=== PATIENT | female | born 1940 | race Caucasian/White ===

== ENCOUNTER → 2016-05-28 | Outpatient (CLI) | payer MEDICARE, OTHER | LOC: RAD 16:00 | PROVIDERS: ATTEND Internal Medicine | DX: M54.14 Radiculopathy, thoracic region (principal); M54.5 Low back pain; S22.000A Wedge compression fracture of unspecified thoracic vertebra, initial encounter for closed fracture; X58.XXXA Exposure to other specified factors, initial encounter; M48.06 Spinal stenosis, lumbar region | CPT/HCPCS: 72146; 72148 ==

== ENCOUNTER → 2016-09-22 | Outpatient (CLI) | payer MEDICARE, OTHER ==
--- NOTE | 2016-09-22 15:51 | RADIOLOGY REPORT (SQ) ---
EXAM DESCRIPTION: VENOUS UNILATERAL LOWER COMPLETED DATE/TIME: 09/22/2016 3:38 pm REASON FOR STUDY: RLE M79.604 M79.604 PAIN IN RIGHT LEG COMPARISON: None. TECHNIQUE: Dynamic and static العر[place] scale and color images acquired of the right leg venous system. S elected spectral images acquired with additional compression and augmentation maneuvers. The contrala teral common femoral vein and saphenofemoral junction were also imaged. Images stored on PACS. LIMITATIONS: None. FINDINGS: RIGHT COMMON FEMORAL: Echogenic nonocclusive clot is seen in the right common femoral vein. FEMORAL: Mixed echogenicity occlusive clot is seen in the femoral vein POPLITEAL: Nearly occlusive mixed echogenicity clot is seen in the right popliteal vein. CALF VESSELS: 1 of the paired posterior tibial veins is completely thrombosed, the other is patent. Peroneal veins unremarkable. GSV and SSV: Normal compression, augmentation. No visualized echogenic material on العر[place] scale. No def ects on color images. ANY DEEP VENOUS INSUFFICIENCY: Not evaluated. ANY EVIDENCE OF POPLITEAL CYST: No. OTHER: No other significant finding. LEFT COMMON FEMORAL VEIN AND SAPHENOFEMORAL JUNCTION: Normal phasicity, compression and augmentation. No visualized echogenic material on العراق[place] scale. No de fects on color images. IMPRESSION: DEEP VENOUS THROMBOSIS RIGHT LEG FROM THE POSTERIOR TIBIAL VEINS THROUGH THE POPLITEAL, FEMORAL, AND COMMON FEMORAL VEINS. TECHNICAL DOCUMENTATION: JOB ID: [id number] [employer]- All Rights Reserved
== END ==
LOC: SP 14:05
PROVIDERS: ATTEND Internal Medicine Medical Oncology
DX: M79.604 Pain in right leg (principal); I82.441 Acute embolism and thrombosis of right tibial vein; C90.01 Multiple myeloma in remission
CPT/HCPCS: 93971

== ENCOUNTER → 2017-02-16 | Outpatient (CLI) | payer MEDICARE, OTHER ==
--- NOTE | 2017-02-16 15:23 | XCELERA REPORT ---
[address] [address] Lower Extremity Venous Evaluation Name: MARIELA SINHA Age: 76 yrs Gender: Female : 1940 Patient Status: Outpatient Patient Location: Study Date: 02/16/2017 10:46 AM Procedure: Color flow and duplex imaging of the veins of the right lower extremity as well as the left Common Femoral vein. Reason For Study: HX DVT RLE Ordering Physician: BECK PEREZ Performed By: Ana Lilia Jones Right Sided Venous Evaluation Normal vessel filling wall to wall, compression and augmentation as well as Colour flow down to the infrageniculate veins. Left Sided Venous Evaluation The left common femoral vein is fully compressible. Spontaneous and phasic flow is present in the left common femoral vein. Interpretation Summary No duplex evidence of DVT or obstruction in the right lower extremity nor in the left Common Femoral vein. : BECK PEREZ [place]
== END ==
LOC: SP 10:43
PROVIDERS: ATTEND Internal Medicine
DX: I82.411 Acute embolism and thrombosis of right femoral vein (principal)
CPT/HCPCS: 93971

== ENCOUNTER 2017-03-22 15:23 | Inpatient (IN) | payer MEDICARE, OTHER ==
[2017-03-22] MEDS ORDERED: ALBUTEROL SULFATE 0.083% NEB 2.5 MG/3 ML AMPUL NEB PRN (17:50)
[2017-03-22] MEDS ORDERED: ACETAMINOPHEN 325 MG TABLET PO PRN (17:50)
[2017-03-22 17:58] LABS: ALANINE AMINOTRANSFERASE 35 U/L (9-52); ALBUMIN 3.4 g/dL (3.5-5.0); ALKALINE PHOSPHATASE 57 U/L (38-126); ANION GAP 9 (5-19); ASPARTATE AMINO TRANSFERASE 41 U/L (14-36); BILIRUBIN,DIRECT 0.1 mg/dL (0.0-0.4); BILIRUBIN,TOTAL 0.5 mg/dL (0.2-1.3); BLOOD UREA NITROGEN 16 mg/dL (7-20); CARBON DIOXIDE 29 mmol/L (22-30); CHLORIDE 98 mmol/L (98-107); GLUCOSE 83 mg/dL (75-110); SODIUM 135.6 mmol/L (137-145); TOTAL PROTEIN 5.5 g/dL (6.3-8.2)
[2017-03-22] MEDS ORDERED: GENTAMICIN SULFATE 0 MG in DEXTROSE 5%-WATER 100 ML IV NR (18:00)
[2017-03-22] MEDS ORDERED: PREDNISOLONE ACETATE 1% OPH SUSP 5 ML OP PRN (18:01)
[2017-03-22] MEDS ORDERED: OXYCODONE-ACETAMINOPHEN 5-325 MG TABLET PO PRN ×2 (18:01→20:33)
[2017-03-22 18:03] LABS: POTASSIUM 2.9 mmol/L (3.6-5.0)
--- NOTE | 2017-03-22 18:12 | RADIOLOGY REPORT (SQ) ---
EXAM DESCRIPTION: CHEST PA/LAT COMPLETED DATE/TIME: 03/22/2017 5:58 pm REASON FOR STUDY: HX MULTIPLE MYELOMA COMPARISON: May 2016 MRI EXAM PARAMETERS: NUMBER OF VIEWS: two views TECHNIQUE: Digital Frontal and Lateral radiographic views of the chest acquired. RADIATION DOSE: NA LIMITATIONS: none FINDINGS: LUNGS AND PLEURA: No acute opacities, masses or pneumothorax. Mild chronic interstitial c hanges. No pleural effusion. MEDIASTINUM AND HILAR STRUCTURES: Age-appropriate contour. HEART AND VASCULAR STRUCTURES: Normal size. BONES: No acute findings. Compression deformities similar to May 2016. HARDWARE: None in the chest. OTHER: No other significant finding. IMPRESSION: No acute findings. TECHNICAL DOCUMENTATION: JOB ID: [id number] [place]-72 [id number] [employer]- All Rights Reserved
--- NOTE | 2017-03-22 18:17 | PDOC H&P ---
History of Present Illness Admission Date/PCP: 03/22/17 15:23 BECK PEREZ, Patient complains of: cough. uri. diarrhea. dry mouth. low bp History of Present Illness: MARIELA SINHA is a 76 year old female Past Medical History Cardiac Medical History: Reports: DVT, Hyperlipidema, Hypertension Malignancy Medical History: Reports: Other Malignancy History Note: multiple myloma Musculoskeltal Medical History: Reports: Arthritis Psychiatric Medical History: Reports: Depression, General Anxiety Disorder Hematology: Reports: Anemia Social History Information Source: Patient Lives with: Family, Spouse/Significant other Smoking Status: Never Smoker Frequency of Alcohol Use: Rare Hx Recreational Drug Use: No Drugs: None Hx Prescription Drug Abuse: No Family History Family History: Reviewed & Not Pertinent Parental Family History Reviewed: Yes Children Family History Reviewed: Yes Sibling(s) Family History Reviewed.: Yes Medication/Allergy Home Medications: Allopurinol [Zyloprim 100 mg Tablet] 100 mg PO DAILY 07/02/15 Ascorbic Acid [Acerola C] 500 mg PO DAILY 07/02/15 Atorvastatin Calcium [Lipitor 10 mg Tablet] 10 mg PO QHS 07/02/15 Calcium/Magnesium/Vit D3 [Calcium 500 mg Tablet] 3 tab PO DAILY 07/02/15 Citalopram Hydrobromide [Celexa 20 mg Tablet] 20 mg PO DAILY 07/02/15 Cyanocobalamin (Vitamin B-12) [B-12] 1,000 mcg PO DAILY 07/02/15 Dexamethasone [Decadron 4 Mg Tablet] 40 mg PO PRN PRN 07/02/15 Hydrochlorothiazide 25 mg PO DAILY 07/02/15 Omeprazole [Prilosec] 40 mg PO PRN PRN 07/02/15 Oxycodone HCl/Acetaminophen [Percocet 5-325 mg Tablet] 1 - 2 tab PO Q4H PRN #15 tablet 07/02/15 Oxycodone HCl/Acetaminophen [Percocet 5-325 mg Tablet] 1 - 2 tab PO Q4H PRN #25 tablet 07/02/15 Prednisolone Acetate [Pred Forte] 1 ml OP PRN PRN 07/02/15 Tramadol HCl [Ultram 50 mg Tablet] 50 mg PO Q6HP PRN 07/02/15 Valacyclovir HCl [Valtrex] 1,000 mg PO DAILY 07/02/15 Allergies/Adverse Reactions: Penicillins Allergy (Verified 07/02/15 12:52) Sulfa (Sulfonamide Antibiotics) Allergy (Verified 07/02/15 12:52) Review of Systems All systems: as per [facility] Physical Exam Vital Signs: Temp Pulse Resp BP Pulse Ox 99.5 F 86 16 136/75 H 96 03/22/17 16:39 03/22/17 16:39 03/22/17 16:39 03/22/17 16:39 03/22/17 16:39 Intake & Output 03/21/17 03/22/17 03/23/17 06:59 06:59 06:59 Weight 41.9 kg General appearance: PRESENT: severe distress Eye exam: PRESENT: conjunctiva pale Mouth exam: PRESENT: dry mucosa Neck exam: ABSENT: JVD Respiratory exam: PRESENT: accessory muscle use, rhonchi, tachypnea Cardiovascular exam: PRESENT: +S1, +S2, tachycardia GI/Abdominal exam: PRESENT: soft, tenderness Extremities exam: PRESENT: full ROM Musculoskeletal exam: PRESENT: ambulatory Neurological exam: PRESENT: alert, awake Results Laboratory Results: 03/22/17 17:26 03/22/17 03/22/17 17:26 17:26 Seg Neutrophils % Not Reportable Lymphocytes % Not Reportable Monocytes % Not Reportable Eosinophils % Not Reportable Basophils % Not Reportable Absolute Neutrophils Not Reportable Absolute Lymphocytes Not Reportable Absolute Monocytes Not Reportable Absolute Eosinophils Not Reportable Absolute Basophils Not Reportable Sodium 135.6 L Potassium 2.9 L* Chloride 98 Carbon Dioxide 29 Anion Gap 9 BUN 16 Creatinine 0.72 Est GFR ( Amer) > 60 Est GFR (Non-Af Amer) > 60 Glucose 83 Calcium 8.0 L Total Bilirubin 0.5 AST 41 H ALT 35 Alkaline Phosphatase 57 Total Protein 5.5 L Albumin 3.4 L Assessment & Plan - Diagnosis (1) Pneumonia Qualifiers: Pneumonia type: due to unspecified organism Is this a current diagnosis for this admission?: Yes Plan: antibiotics (2) Hypokalemia Is this a current diagnosis for this admission?: Yes Plan: kcl (3) Dehydration Is this a current diagnosis for this admission?: Yes Plan: ivf (4) Gastroenteritis Is this a current diagnosis for this admission?: Yes Plan: antibiotics clear liquids (5) Multiple myeloma Is this a current diagnosis for this admission?: Yes Plan: hem/onc consult (6) DVT (deep venous thrombosis) Is this a current diagnosis for this admission?: Yes Plan: elder
[2017-03-22 19:10] LABS: HEMATOCRIT 31.4 % (36.0-47.0); HEMOGLOBIN 10.8 g/dL (12.0-15.5); MEAN CORPUSCULAR HEMOGLOBIN 36.5 pg (27.0-33.4); MEAN CORPUSCULAR HGB CONC 34.3 g/dL (32.0-36.0); MEAN CORPUSCULAR VOLUME 106 fl (80-97); RED BLOOD COUNT 2.95 10^6/uL (3.72-5.28); RED CELL DISTRIBUTION WIDTH 14.6 % (11.5-14.0)
[2017-03-22 19:29] LABS: PLATELET COUNT 86 10^3/uL (150-450)
[2017-03-22 19:35] LABS: ABSOLUTE NEUTROPHILS# (MANUAL) 0.7 10^3/uL (1.7-8.2); BASOPHILS % (MANUAL) 2 % (0-2); EOSINOPHILS % (MANUAL) 0 % (0-6); LYMPHOCYTES % (MANUAL) 56 % (13-45); MONOCYTES % (MANUAL) 0 % (3-13); SEGMENTED NEUTROPHILS % (MAN) 42 % (42-78); TOTAL CELLS COUNTED 50
[2017-03-22 19:40] LABS: ANISOCYTOSIS SLIGHT; OVALOCYTES 1+; PLATELET CLUMPS PRESENT; PLATELET COMMENT DECREASED; POIKILOCYTOSIS SLIGHT; POLYCHROMASIA SLIGHT; TOXIC GRANULATION 1+
[2017-03-22 19:43] LABS: WHITE BLOOD COUNT 1.7 10^3/uL (4.0-10.5)
[2017-03-22 19:48] LABS: TOXIC VACUOLATION PRESENT
[2017-03-22] MEDS: AZTREONAM 1 GM in DEXTROSE 5%-WATER 50 ML IV SCH (21:53)
[2017-03-22] MEDS: POTASSIUM CHLORIDE 10 MEQ TABLET.SA PO SCH (21:53)
[2017-03-22] MEDS: FAMOTIDINE INJ/PF 20 MG/2 ML SDV IV SCH (21:53)
[2017-03-22] MEDS: GENTAMICIN SULFATE 70 MG in DEXTROSE 5%-WATER 100 ML IV SCH (21:53)
[2017-03-23] MEDS: POTASSIUM CHLORIDE 10 MEQ TABLET.SA PO SCH ×3 (03:42→09:39)
[2017-03-23] MEDS: AZTREONAM 1 GM in DEXTROSE 5%-WATER 50 ML IV SCH ×3 (05:39→23:18)
[2017-03-23 06:49] LABS: ABSOLUTE MONOCYTES (AUTO) 0.3 10^3/uL (0.1-1.4); ABSOLUTE NEUT (AUTO) 0.8 10^3/uL (1.7-8.2); BASOPHILS % (AUTO) 0.6 % (0-2); EOSINOPHILS % (AUTO) 0.2 % (0-6); HEMATOCRIT 29.6 % (36.0-47.0); HEMOGLOBIN 10.3 g/dL (12.0-15.5); LYMPHOCYTES % (AUTO) 47.3 % (13-45); MEAN CORPUSCULAR HEMOGLOBIN 37.1 pg (27.0-33.4); MEAN CORPUSCULAR HGB CONC 34.9 g/dL (32.0-36.0); MEAN CORPUSCULAR VOLUME 106 fl (80-97); MONOCYTES % (AUTO) 14.1 % (3-13); RED BLOOD COUNT 2.78 10^6/uL (3.72-5.28); RED CELL DISTRIBUTION WIDTH 14.8 % (11.5-14.0); SEGMENTED NEUTROPHILS % (AUTO) 37.8 % (42-78); TOTAL CELLS COUNTED % (AUTO) 100 %; WHITE BLOOD COUNT 2.1 10^3/uL (4.0-10.5)
[2017-03-23 06:50] LABS: PLATELET COUNT 77 10^3/uL (150-450)
[2017-03-23 06:51] LABS: ANION GAP 8 (5-19); BLOOD UREA NITROGEN 13 mg/dL (7-20); CALCIUM 7.4 mg/dL (8.4-10.2); CARBON DIOXIDE 24 mmol/L (22-30); CHLORIDE 103 mmol/L (98-107); GLUCOSE 108 mg/dL (75-110); POTASSIUM 3.8 mmol/L (3.6-5.0); SODIUM 134.6 mmol/L (137-145)
--- NOTE | 2017-03-23 08:40 | PDOC PROGRESS REPORT ---
Subjective Progress Note for:: 03/23/17 Subjective:: The patient states to feel slightly better. She does have a very productive cough. Her white count is slightly up. Reason For Visit: PNEUMONIA, DEHYDRATION, GASTROENTERITIS Physical Exam Vital Signs: Temp Pulse Resp BP Pulse Ox 98.7 F 67 18 92/55 L 100 03/23/17 08:01 03/23/17 08:01 03/23/17 08:01 03/23/17 08:01 03/23/17 08:01 Intake & Output 03/22/17 03/23/17 03/24/17 06:59 06:59 06:59 Intake Total 1420 Balance 1420 Weight 43.2 kg General appearance: PRESENT: mild distress Head exam: PRESENT: atraumatic Eye exam: PRESENT: conjunctiva pink Neck exam: ABSENT: carotid bruit Respiratory exam: PRESENT: rhonchi, tachypnea Cardiovascular exam: PRESENT: RRR, +S1, +S2 Pulses: PRESENT: +1 pedal pulses bilateral GI/Abdominal exam: PRESENT: normal bowel sounds, soft Extremities exam: PRESENT: full ROM Musculoskeletal exam: PRESENT: ambulatory Neurological exam: PRESENT: alert, awake Psychiatric exam: PRESENT: anxious, depressed Results Laboratory Results: 03/23/17 05:43 03/23/17 05:43 03/22/17 03/22/17 03/22/17 17:26 17:26 18:35 WBC Cancelled 1.7 L RBC Cancelled 2.95 L Hgb Cancelled 10.8 L Hct Cancelled 31.4 L MCV Cancelled 106 H MCH Cancelled 36.5 H MCHC Cancelled 34.3 RDW Cancelled 14.6 H Plt Count Cancelled 86 L Seg Neutrophils % Cancelled Not Reportable Lymphocytes % Cancelled Not Reportable Monocytes % Cancelled Not Reportable Eosinophils % Cancelled Not Reportable Basophils % Cancelled Not Reportable Absolute Neutrophils Cancelled Not Reportable Absolute Lymphocytes Cancelled Not Reportable Absolute Monocytes Cancelled Not Reportable Absolute Eosinophils Cancelled Not Reportable Absolute Basophils Cancelled Not Reportable Sodium 135.6 L Potassium 2.9 L* Chloride 98 Carbon Dioxide 29 Anion Gap 9 BUN 16 Creatinine 0.72 Est GFR ( Amer) > 60 Est GFR (Non-Af Amer) > 60 Glucose 83 Calcium 8.0 L Total Bilirubin 0.5 AST 41 H ALT 35 Alkaline Phosphatase 57 Total Protein 5.5 L Albumin 3.4 L 03/23/17 03/23/17 05:43 05:43 WBC 2.1 L RBC 2.78 L Hgb 10.3 L Hct 29.6 L MCV 106 H MCH 37.1 H MCHC 34.9 RDW 14.8 H Plt Count 77 L Seg Neutrophils % 37.8 L Lymphocytes % 47.3 H Monocytes % 14.1 H Eosinophils % 0.2 Basophils % 0.6 Absolute Neutrophils 0.8 L Absolute Lymphocytes 1.0 Absolute Monocytes 0.3 Absolute Eosinophils 0.0 Absolute Basophils 0.0 Sodium 134.6 L Potassium 3.8 Chloride 103 Carbon Dioxide 24 Anion Gap 8 BUN 13 Creatinine 0.66 Est GFR ( Amer) > 60 Est GFR (Non-Af Amer) > 60 Glucose 108 Calcium 7.4 L Total Bilirubin AST ALT Alkaline Phosphatase Total Protein Albumin Impressions: Chest X-Ray 03/22/17 00:00 IMPRESSION: No acute findings. Assessment & Plan - Diagnosis (1) Pneumonia Qualifiers: Pneumonia type: due to unspecified organism Is this a current diagnosis for this admission?: Yes Plan: antibiotics (2) Hypokalemia Is this a current diagnosis for this admission?: Yes Plan: kcl (3) Dehydration Is this a current diagnosis for this admission?: Yes Plan: ivf (4) Gastroenteritis Is this a current diagnosis for this admission?: Yes Plan: antibiotics clear liquids (5) Multiple myeloma Is this a current diagnosis for this admission?: Yes Plan: hem/onc consult (6) DVT (deep venous thrombosis) Is this a current diagnosis for this admission?: Yes Plan: elder
--- NOTE | 2017-03-23 09:01 | PDOC CONSULTATION ---
Consultation Consult Date: 03/23/17 Attending physician:: BECK PEREZ History of Present Illness Admission Date/PCP: 03/22/17 15:23 BECK PEREZ, Patient complains of: Cough, SOB, URI sx, myeloma, immunodeficiency History of Present Illness: 76-year-old female with history of multiple myeloma. She was originally diagnosed in 08/2015, she actually had a fracture a year before T6 through 8, was being worked up extensively at the time in [place], ultimately was finally diagnosed with multiple myeloma, from the biopsy of T7, she was then started on treatment through Dr. Servin, it sounds like she was on Revlimid, Velcade, dexamethasone, it sounds as though she had an excellent response. She was then considered for transplant, and ultimately had transplant 02/2017 at [facility], the transplant physician was Dr. Cash. 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 She had expressed interest in transferring care to us, and actually had filled out paperwork to do that, she presented to her PCP with cough congestion shortness of breath, and is being treated for an upper respiratory tract infection. She is pancytopenic with total white count of the 2 range, hemoglobin 10, platelets 70. Past Medical History Cardiac Medical History: Reports: DVT, Hyperlipidema, Hypertension Malignancy Medical History: Reports: Other - Multiple myeloma Musculoskeltal Medical History: Reports: Arthritis Psychiatric Medical History: Reports: Depression, General Anxiety Disorder Hematology: Reports: Anemia Past Surgical History Past Surgical History: Reports: Other - Bone marrow biopsy, vertebroplasty, vertebral biopsy Social History Information Source: Patient Lives with: Family, Spouse/Significant other Smoking Status: Never Smoker Last Time Smoked: 1989 Frequency of Alcohol Use: Rare Hx Recreational Drug Use: No Drugs: None Hx Prescription Drug Abuse: No - Advance Directive Resuscitation Status: Do Not Resuscitate Family History Family History: Reviewed & Not Pertinent Parental Family History Reviewed: Yes Children Family History Reviewed: Yes Sibling(s) Family History Reviewed.: Yes Medication/Allergy Home Medications: Calcium Carbonate/Vitamin D3 [Calcium 500 + Vit D3 400 Tab] 1 each PO DAILY Citalopram Hydrobromide [Celexa 20 mg Tablet] 20 mg PO DAILY 03/22/17 Cyanocobalamin (Vitamin B-12) [Vitamin B-12 1000 Mcg Tablet] 1,000 mcg PO DAILY 03/22/17 Lenalidomide [Revlimid] 15 mg PO DAILY 03/22/17 Oxycodone HCl [Oxycontin Sr 10 mg Tablet] 10 mg PO Q12HP PRN 03/22/17 Oxycodone HCl/Acetaminophen [Percocet 5-325 mg Tablet] 1 tab PO Q4HP PRN Prednisolone Acetate [Pred Forte] 1 drop OS DAILY 03/22/17 Rivaroxaban [Xarelto] 20 mg PO DAILY 03/22/17 Valacyclovir HCl [Valtrex 500 Mg Tablet] 500 mg PO BID 03/22/17 Allergies/Adverse Reactions: Penicillins Allergy (Verified 07/02/15 12:52) Sulfa (Sulfonamide Antibiotics) Allergy (Verified 07/02/15 12:52) Review of Systems Constitutional: ABSENT: chills, fever(s), headache(s), weight gain, weight loss Eyes: ABSENT: visual disturbances Ears: ABSENT: hearing changes Cardiovascular: ABSENT: chest pain, dyspnea on exertion, edema, orthropnea, palpitations Respiratory: ABSENT: cough, hemoptysis Gastrointestinal: ABSENT: abdominal pain, constipation, diarrhea, hematemesis, hematochezia, nausea, vomiting Genitourinary: ABSENT: dysuria, hematuria Musculoskeletal: ABSENT: joint swelling Integumentary: ABSENT: rash, wounds Neurological: ABSENT: abnormal gait, abnormal speech, confusion, dizziness, focal weakness, syncope Psychiatric: ABSENT: anxiety, depression, homidical ideation, suicidal ideation Endocrine: ABSENT: cold intolerance, heat intolerance, polydipsia, polyuria Hematologic/Lymphatic: ABSENT: easy bleeding, easy bruising Physical Exam Vital Signs: Temp Pulse Resp BP Pulse Ox 98.7 F 67 18 92/55 L 100 03/23/17 08:01 03/23/17 08:01 03/23/17 08:01 03/23/17 08:01 03/23/17 08:01 Intake & Output 03/22/17 03/23/17 03/24/17 06:59 06:59 06:59 Intake Total 1420 Balance 1420 Weight 43.2 kg General appearance: PRESENT: no acute distress, well-developed, well-nourished Head exam: PRESENT: atraumatic, normocephalic Eye exam: PRESENT: conjunctiva pink, EOMI, PERRLA. ABSENT: scleral icterus Ear exam: PRESENT: normal external ear exam Mouth exam: PRESENT: moist, tongue midline Neck exam: ABSENT: carotid bruit, JVD, lymphadenopathy, thyromegaly Respiratory exam: PRESENT: clear to auscultation regino. ABSENT: rales, rhonchi, wheezes Cardiovascular exam: PRESENT: RRR. ABSENT: diastolic murmur, rubs, systolic murmur Pulses: PRESENT: normal dorsalis pedis pul Vascular exam: PRESENT: normal capillary refill GI/Abdominal exam: PRESENT: normal bowel sounds, soft. ABSENT: distended, guarding, mass, organolmegaly, rebound, tenderness Rectal exam: PRESENT: deferred Extremities exam: PRESENT: full ROM. ABSENT: calf tenderness, clubbing, pedal edema Neurological exam: PRESENT: alert, awake, oriented to person, oriented to place , oriented to time, oriented to situation, CN II-XII grossly intact. ABSENT: motor sensory deficit Psychiatric exam: PRESENT: appropriate affect, normal mood. ABSENT: homicidal ideation, suicidal ideation Skin exam: PRESENT: dry, intact, warm. ABSENT: cyanosis, rash Results Laboratory Results: 03/23/17 05:43 03/23/17 05:43 03/22/17 03/22/17 03/22/17 17:26 17:26 18:35 WBC Cancelled 1.7 L RBC Cancelled 2.95 L Hgb Cancelled 10.8 L Hct Cancelled 31.4 L MCV Cancelled 106 H MCH Cancelled 36.5 H MCHC Cancelled 34.3 RDW Cancelled 14.6 H Plt Count Cancelled 86 L Seg Neutrophils % Cancelled Not Reportable Lymphocytes % Cancelled Not Reportable Monocytes % Cancelled Not Reportable Eosinophils % Cancelled Not Reportable Basophils % Cancelled Not Reportable Absolute Neutrophils Cancelled Not Reportable Absolute Lymphocytes Cancelled Not Reportable Absolute Monocytes Cancelled Not Reportable Absolute Eosinophils Cancelled Not Reportable Absolute Basophils Cancelled Not Reportable Sodium 135.6 L Potassium 2.9 L* Chloride 98 Carbon Dioxide 29 Anion Gap 9 BUN 16 Creatinine 0.72 Est GFR ( Amer) > 60 Est GFR (Non-Af Amer) > 60 Glucose 83 Calcium 8.0 L Total Bilirubin 0.5 AST 41 H ALT 35 Alkaline Phosphatase 57 Total Protein 5.5 L Albumin 3.4 L 03/23/17 03/23/17 05:43 05:43 WBC 2.1 L RBC 2.78 L Hgb 10.3 L Hct 29.6 L MCV 106 H MCH 37.1 H MCHC 34.9 RDW 14.8 H Plt Count 77 L Seg Neutrophils % 37.8 L Lymphocytes % 47.3 H Monocytes % 14.1 H Eosinophils % 0.2 Basophils % 0.6 Absolute Neutrophils 0.8 L Absolute Lymphocytes 1.0 Absolute Monocytes 0.3 Absolute Eosinophils 0.0 Absolute Basophils 0.0 Sodium 134.6 L Potassium 3.8 Chloride 103 Carbon Dioxide 24 Anion Gap 8 BUN 13 Creatinine 0.66 Est GFR ( Amer) > 60 Est GFR (Non-Af Amer) > 60 Glucose 108 Calcium 7.4 L Total Bilirubin AST ALT Alkaline Phosphatase Total Protein Albumin Impressions: Chest X-Ray 03/22/17 00:00 IMPRESSION: No acute findings. Assessment & Plan - Diagnosis (1) Pancytopenia due to antineoplastic chemotherapy Is this a current diagnosis for this admission?: Yes Plan: Patient does have pancytopenia, he could be somewhat related to current infection, but may also be related to Revlimid. She is on Revlimid maintenance therapy which is standard post transplant. This also can cause cytopenias. We would recommend holding the Revlimid for now, and seeing how her counts recover before restarting. The present, no need for blood or platelet transfusion. 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 (3) Multiple myeloma Qualifiers: Multiple myeloma remission status: in remission Qualified Code(s): C90.01 - Multiple myeloma in remission Is this a current diagnosis for this admission?: Yes Plan: Multiple myeloma presumably in remission, today if sent off biloma labs to reevaluate, we have also asked for records from Dr. Servin. We will take over her care. - Time Time Spent: Greater than 70 Minutes - Inpatient Certification Based on my medical assessment, after consideration of the patient's comorbidities, presenting symptoms, or acuity I expect that the services needed warrant INPATIENT care.: Yes I certify that my determination is in accordance with my understanding of Medicare's requirements for reasonable and necessary INPATIENT services [42 CFR 412.3e].: Yes Medical Necessity: Need for IV Antibiotics
[2017-03-23] MEDS: CITALOPRAM HYDROBROMIDE 20 MG TABLET PO SCH (09:38)
[2017-03-23] MEDS: PREDNISOLONE ACETATE 1% OPH SUSP 5 ML OS SCH (09:39)
[2017-03-23] MEDS: VALACYCLOVIR HCL 500 MG TABLET PO SCH (09:39)
[2017-03-23] MEDS: FAMOTIDINE INJ/PF 20 MG/2 ML SDV IV SCH ×2 (09:39→21:00)
[2017-03-23] MEDS: LEVOFLOXACIN 500 MG/D5W RTU 500 MG/100 ML RTUPB IV SCH (09:39)
[2017-03-23] MEDS: CYANOCOBALAMIN (VITAMIN B-12) 1,000 MCG TABLET PO SCH (09:39)
[2017-03-23] MEDS ORDERED: (PENDING PHARMACY ID) (Valacyclovir Hcl [Valtrex] 1,000 MG) PO SCH (10:00)
[2017-03-23 13:50] LABS: PATH REVIEW PATHOLOGIST REVIEWED
[2017-03-23] MEDS: RIVAROXABAN 10 MG TABLET PO SCH (17:35)
[2017-03-23] MEDS: GENTAMICIN SULFATE 70 MG in DEXTROSE 5%-WATER 100 ML IV SCH (20:58)
[2017-03-24] MEDS: NORMAL SALINE 1000 ML 1,000 ML IV PRN (03:16)
[2017-03-24] MEDS: AZTREONAM 1 GM in DEXTROSE 5%-WATER 50 ML IV SCH ×3 (05:36→21:24)
[2017-03-24 07:40] LABS: IMMUNOGLOBULIN G 484 mg/dL (700-1600)
--- NOTE | 2017-03-24 07:57 | EKG REPORT ---
SEVERITY:- ABNORMAL ECG - SINUS RHYTHM PROBABLE LEFT ATRIAL ABNORMALITY ANTERIOR INFARCT, AGE INDETERMINATE : Confirmed by: Verónica Balbuena MD 24-Mar-2017 07:55:32
--- NOTE | 2017-03-24 08:18 | PDOC PROGRESS REPORT ---
Subjective Progress Note for:: 03/24/17 Subjective:: Patient has been complaining of diarrhea, although this is not new since it has been happening since transplant about a year ago, she noted it was "green". Otherwise, myeloma labs are pending. ANC is under 1000, so was planning on giving Neupogen today. Reason For Visit: PNEUMONIA, DEHYDRATION, GASTROENTERITIS Physical Exam Vital Signs: Temp Pulse Resp BP Pulse Ox 98.3 F 71 14 100/60 95 03/24/17 04:00 03/24/17 04:00 03/24/17 04:00 03/24/17 04:00 03/24/17 04:00 Intake & Output 03/23/17 03/24/17 03/25/17 06:59 06:59 06:59 Intake Total 1420 3902 Balance 1420 3902 Weight 43.2 kg 43.2 kg General appearance: PRESENT: no acute distress Respiratory exam: PRESENT: crackles GI/Abdominal exam: PRESENT: normal bowel sounds, soft. ABSENT: distended, guarding, mass, organolmegaly, rebound, tenderness Rectal exam: PRESENT: deferred Musculoskeletal exam: PRESENT: ambulatory Psychiatric exam: PRESENT: appropriate affect Results Laboratory Results: 03/23/17 05:43 03/23/17 05:43 Impressions: Chest X-Ray 03/22/17 00:00 IMPRESSION: No acute findings. Assessment & Plan - Diagnosis (1) Pancytopenia due to antineoplastic chemotherapy Is this a current diagnosis for this admission?: Yes Plan: Plan for Neupogen today 480 mcg daily until ANC greater than 1000, which may even be tomorrow. I think she will do better with this upper respiratory tract infection if her ANC is a little bit higher. (2) Pneumonia Qualifiers: Pneumonia type: due to unspecified organism Is this a current diagnosis for this admission?: Yes Plan: Continued on IV antibiotics. (3) Multiple myeloma Qualifiers: Multiple myeloma remission status: in remission Qualified Code(s): C90.01 - Multiple myeloma in remission Is this a current diagnosis for this admission?: Yes Plan: Labs pending, awaiting records from Dr. Servin, will follow up as an outpatient. (5) Hypogammaglobulinaemia, unspecified Is this a current diagnosis for this admission?: Yes Plan: Patient has been started as an outpatient by Dr. Awomolo on monthly IVIG, immunoglobin levels are pending now, will make a decision on further IVIG as an outpatient. - Time Time Spent with patient: 25-34 minutes Anticipated discharge: Home Within: within 24 hours - Inpatient Certification Based on my medical assessment, after consideration of the patient's comorbidities, presenting symptoms, or acuity I expect that the services needed warrant INPATIENT care.: Yes I certify that my determination is in accordance with my understanding of Medicare's requirements for reasonable and necessary INPATIENT services [42 CFR 412.3e].: Yes Medical Necessity: Need for IV Antibiotics, Risk of Complication if Not Cared For in Hospital
--- NOTE | 2017-03-24 08:21 | PDOC PROGRESS REPORT ---
Subjective Progress Note for:: 03/24/17 Subjective:: The patient states to feel much better. She still has some mild residual cough. She has had some loose bowels which appeared to be green. Discussed the need for stool cultures and advance the diet. Reason For Visit: PNEUMONIA, DEHYDRATION, GASTROENTERITIS Physical Exam Vital Signs: Temp Pulse Resp BP Pulse Ox 98.3 F 71 14 100/60 95 03/24/17 04:00 03/24/17 04:00 03/24/17 04:00 03/24/17 04:00 03/24/17 04:00 Intake & Output 03/23/17 03/24/17 03/25/17 06:59 06:59 06:59 Intake Total 1420 3902 Balance 1420 3902 Weight 43.2 kg 43.2 kg General appearance: PRESENT: mild distress Head exam: PRESENT: atraumatic Eye exam: PRESENT: conjunctiva pink Neck exam: ABSENT: carotid bruit, JVD Respiratory exam: PRESENT: rhonchi Cardiovascular exam: PRESENT: RRR, +S1, +S2 Pulses: PRESENT: +1 pedal pulses bilateral GI/Abdominal exam: PRESENT: normal bowel sounds, soft Extremities exam: PRESENT: full ROM Musculoskeletal exam: PRESENT: ambulatory Neurological exam: PRESENT: alert, awake Results Laboratory Results: 03/23/17 05:43 03/23/17 05:43 Impressions: Chest X-Ray 03/22/17 00:00 IMPRESSION: No acute findings. Assessment & Plan - Diagnosis (1) Pneumonia Is this a current diagnosis for this admission?: Yes Plan: Continue antibiotics (2) Hypokalemia Is this a current diagnosis for this admission?: Yes Plan: Improved we will continue with supplementation (3) Dehydration Is this a current diagnosis for this admission?: Yes Plan: Since the diarrhea persist we will continue with IV fluids (4) Gastroenteritis Is this a current diagnosis for this admission?: Yes Plan: antibiotics clear liquids (5) Multiple myeloma Qualifiers: Qualified Code(s): C90.01 - Multiple myeloma in remission Is this a current diagnosis for this admission?: Yes Plan: Being managed by the oncologist (6) DVT (deep venous thrombosis) Is this a current diagnosis for this admission?: Yes Plan: elder
[2017-03-24 09:22] LABS: IMMUNOGLOBULIN A 161 mg/dL (64-422)
[2017-03-24] MEDS: LEVOFLOXACIN 500 MG/D5W RTU 500 MG/100 ML RTUPB IV SCH (11:07)
[2017-03-24] MEDS: CYANOCOBALAMIN (VITAMIN B-12) 1,000 MCG TABLET PO SCH (11:08)
[2017-03-24] MEDS: VALACYCLOVIR HCL 500 MG TABLET PO SCH (11:09)
[2017-03-24] MEDS: CITALOPRAM HYDROBROMIDE 20 MG TABLET PO SCH (11:09)
[2017-03-24] MEDS: FILGRASTIM INJ 480 MCG/1.6 ML VIAL SUBCUT SCH (11:10)
[2017-03-24] MEDS: PREDNISOLONE ACETATE 1% OPH SUSP 5 ML OS SCH (11:10)
[2017-03-24 13:37] LABS: FREE KAPPA LIGHT CHAINS 12.8 mg/L (3.3-19.4); FREE LAMBDA LIGHT CHAINS 13.5 mg/L (5.7-26.3)
[2017-03-24 14:08] LABS: KAPPA LAMBDA RATIO 0.95 (0.26-1.65)
[2017-03-24] MEDS: RIVAROXABAN 10 MG TABLET PO SCH (18:15)
[2017-03-25] MEDS: AZTREONAM 1 GM in DEXTROSE 5%-WATER 50 ML IV SCH (06:17)
[2017-03-25] MEDS: NORMAL SALINE 1000 ML 1,000 ML IV PRN ×3 (06:18→17:47)
[2017-03-25 07:14] LABS: ABSOLUTE LYMPHOCYTES (AUTO) 1.1 10^3/uL (0.5-4.7); ABSOLUTE MONOCYTES (AUTO) 0.4 10^3/uL (0.1-1.4); ABSOLUTE NEUT (AUTO) 1.8 10^3/uL (1.7-8.2); BASOPHILS % (AUTO) 1.4 % (0-2); EOSINOPHILS % (AUTO) 0.8 % (0-6); HEMATOCRIT 26.1 % (36.0-47.0); HEMOGLOBIN 9.2 g/dL (12.0-15.5); LYMPHOCYTES % (AUTO) 33.4 % (13-45); MEAN CORPUSCULAR HEMOGLOBIN 37.3 pg (27.0-33.4); MEAN CORPUSCULAR HGB CONC 35.3 g/dL (32.0-36.0); MEAN CORPUSCULAR VOLUME 106 fl (80-97); MONOCYTES % (AUTO) 11.3 % (3-13); RED BLOOD COUNT 2.47 10^6/uL (3.72-5.28); SEGMENTED NEUTROPHILS % (AUTO) 53.1 % (42-78); TOTAL CELLS COUNTED % (AUTO) 100 %; WHITE BLOOD COUNT 3.4 10^3/uL (4.0-10.5)
[2017-03-25 07:29] LABS: ALANINE AMINOTRANSFERASE 29 U/L (9-52); ALBUMIN 2.5 g/dL (3.5-5.0); ALKALINE PHOSPHATASE 49 U/L (38-126); ANION GAP 6 (5-19); ASPARTATE AMINO TRANSFERASE 21 U/L (14-36); BILIRUBIN,DIRECT 0.1 mg/dL (0.0-0.4); BILIRUBIN,TOTAL 0.2 mg/dL (0.2-1.3); BLOOD UREA NITROGEN 5 mg/dL (7-20); CARBON DIOXIDE 24 mmol/L (22-30); CHLORIDE 111 mmol/L (98-107); GLUCOSE 84 mg/dL (75-110); MAGNESIUM 1.7 mg/dL (1.6-2.3); POTASSIUM 3.3 mmol/L (3.6-5.0); SODIUM 141.3 mmol/L (137-145); TOTAL PROTEIN 4.6 g/dL (6.3-8.2)
[2017-03-25 07:39] LABS: PLATELET COUNT 92 10^3/uL (150-450)
[2017-03-25 07:41] LABS: CALCIUM 6.9 mg/dL (8.4-10.2)
--- NOTE | 2017-03-25 08:58 | PDOC PROGRESS REPORT ---
Subjective Progress Note for:: 03/25/17 Subjective:: Patient notes that the diarrhea has stopped, she feels better today, cough is a little bit better. Her was at bedside, we had a long conversation about her current status of disease, next steps of care, we discussed discontinuing the Revlimid until her blood counts are improved, the was aware of that now. I also discussed her plan with Dr. Chaudhary this morning, he is now out of town, and hospitalist is covering, we discussed discontinuing the aztreonam, IV Levaquin, transitioning to oral Levaquin, I will also decrease her Valtrex dose because that also can be myelosuppressive at times, and we will monitor her for the next 24 hours. In total we spent about 45 minutes in discussion and coordination of care. Reason For Visit: PNEUMONIA, DEHYDRATION, GASTROENTERITIS Physical Exam Vital Signs: Temp Pulse Resp BP Pulse Ox 98.2 F 80 18 118/69 96 03/25/17 08:32 03/25/17 08:32 03/25/17 08:32 03/25/17 08:32 03/25/17 08:32 Intake & Output 03/24/17 03/25/17 03/26/17 06:59 06:59 06:59 Intake Total 3902 3130 Balance 3902 3130 Weight 43.2 kg 43.2 kg General appearance: PRESENT: no acute distress, well-developed, well-nourished Head exam: PRESENT: atraumatic, normocephalic Eye exam: PRESENT: conjunctiva pink, EOMI, PERRLA. ABSENT: scleral icterus Ear exam: PRESENT: normal external ear exam Mouth exam: PRESENT: moist, tongue midline Neck exam: ABSENT: carotid bruit, JVD, lymphadenopathy, thyromegaly Respiratory exam: PRESENT: clear to auscultation regino. ABSENT: rales, rhonchi, wheezes Cardiovascular exam: PRESENT: RRR. ABSENT: diastolic murmur, rubs, systolic murmur Pulses: PRESENT: normal dorsalis pedis pul Vascular exam: PRESENT: normal capillary refill GI/Abdominal exam: PRESENT: normal bowel sounds, soft. ABSENT: distended, guarding, mass, organolmegaly, rebound, tenderness Rectal exam: PRESENT: deferred Extremities exam: PRESENT: full ROM. ABSENT: calf tenderness, clubbing, pedal edema Neurological exam: PRESENT: alert, awake, oriented to person, oriented to place , oriented to time, oriented to situation, CN II-XII grossly intact. ABSENT: motor sensory deficit Psychiatric exam: PRESENT: appropriate affect, normal mood. ABSENT: homicidal ideation, suicidal ideation Skin exam: PRESENT: dry, intact, warm. ABSENT: cyanosis, rash Results Laboratory Results: 03/25/17 06:20 03/25/17 06:20 03/25/17 03/25/17 03/25/17 06:20 06:20 06:20 WBC 3.4 L RBC 2.47 L Hgb 9.2 L Hct 26.1 L MCV 106 H MCH 37.3 H MCHC 35.3 RDW 15.0 H Plt Count 92 L Seg Neutrophils % 53.1 Lymphocytes % 33.4 Monocytes % 11.3 Eosinophils % 0.8 Basophils % 1.4 Absolute Neutrophils 1.8 Absolute Lymphocytes 1.1 Absolute Monocytes 0.4 Absolute Eosinophils 0.0 Absolute Basophils 0.0 Sodium 141.3 Potassium 3.3 L Chloride 111 H Carbon Dioxide 24 Anion Gap 6 BUN 5 L Creatinine 0.52 Est GFR ( Amer) > 60 Est GFR (Non-Af Amer) > 60 Glucose 84 Calcium 6.9 L* Magnesium 1.7 Total Bilirubin 0.2 AST 21 ALT 29 Alkaline Phosphatase 49 Total Protein 4.6 L Albumin 2.5 L TSH 3.05 Impressions: Chest X-Ray 03/22/17 00:00 IMPRESSION: No acute findings. Assessment & Plan - Diagnosis (1) Pancytopenia due to antineoplastic chemotherapy Is this a current diagnosis for this admission?: Yes Plan: Improved, will give one last dose of Neupogen today. (2) Pneumonia Qualifiers: Pneumonia type: due to unspecified organism Is this a current diagnosis for this admission?: Yes Plan: Improving, transitioning to oral antibiotics and probable discharge tomorrow as long as patient is stable. (3) Multiple myeloma Qualifiers: Multiple myeloma remission status: in remission Qualified Code(s): C90.01 - Multiple myeloma in remission Is this a current diagnosis for this admission?: Yes (4) Hypogammaglobulinemia, acquired Plan: Immunoglobulin levels under 500, hold on IVIG for now, will plan as outpatient. (5) Hypogammaglobulinaemia, unspecified Is this a current diagnosis for this admission?: Yes - Time Time Spent with patient: 35 or more minutes Anticipated discharge: Home Within: within 24 hours - Inpatient Certification Based on my medical assessment, after consideration of the patient's comorbidities, presenting symptoms, or acuity I expect that the services needed warrant INPATIENT care.: Yes I certify that my determination is in accordance with my understanding of Medicare's requirements for reasonable and necessary INPATIENT services [42 CFR 412.3e].: Yes Medical Necessity: Need For Continuous Telemetry Monitoring, Need for IV Antibiotics
[2017-03-25] MEDS: CITALOPRAM HYDROBROMIDE 20 MG TABLET PO SCH (09:58)
[2017-03-25] MEDS: CYANOCOBALAMIN (VITAMIN B-12) 1,000 MCG TABLET PO SCH (09:58)
[2017-03-25] MEDS: VALACYCLOVIR HCL 500 MG TABLET PO SCH (09:58)
[2017-03-25] MEDS: LEVOFLOXACIN 500 MG/D5W RTU 500 MG/100 ML RTUPB IV SCH (10:02)
[2017-03-25] MEDS: PREDNISOLONE ACETATE 1% OPH SUSP 5 ML OS SCH (10:03)
[2017-03-25] MEDS: FILGRASTIM INJ 480 MCG/1.6 ML VIAL SUBCUT SCH (11:49)
[2017-03-25 15:38] LABS: A/G RATIO. 1.3 (0.7-1.7); ALBUMIN 3 2.9 g/dL (2.9-4.4); ALPHA-1-GLOBULIN 0.3 g/dL (0.0-0.4); BETA GLOBULIN 0.9 g/dL (0.7-1.3); GAMMA GLOBULINS 0.4 g/dL (0.4-1.8); IMMUNOGLOBULIN A 171 mg/dL (64-422); IMMUNOGLOBULIN G 488 mg/dL (700-1600); MONOCLONAL-SPIKE Not Observed g/dL (Not Observed); PROTEIN TOTAL SERUM 5.3 g/dL (6.0-8.5)
[2017-03-25] MEDS: RIVAROXABAN 10 MG TABLET PO SCH (17:21)
[2017-03-25 18:00] LABS: IMMUNOGLOBULIN M 26 mg/dL (26-217)
[2017-03-26] MEDS ORDERED: LEVOFLOXACIN 500 MG TABLET PO SCH (10:00)
[2017-03-26] MEDS ORDERED: VALACYCLOVIR HCL 500 MG TABLET PO SCH (10:00)
[2017-03-26] MEDS: CITALOPRAM HYDROBROMIDE 20 MG TABLET PO SCH (10:33)
[2017-03-26] MEDS: CYANOCOBALAMIN (VITAMIN B-12) 1,000 MCG TABLET PO SCH (10:33)
[2017-03-26] MEDS: PREDNISOLONE ACETATE 1% OPH SUSP 5 ML OS SCH (10:33)
[2017-03-26 11:22] VITALS: BP 109/56
--- NOTE | 2017-03-26 11:35 | PDOC PROGRESS REPORT ---
Subjective Progress Note for:: 03/26/17 Subjective:: No acute events overnight, patient seems better this morning, getting ready for discharge Reason For Visit: PNEUMONIA, DEHYDRATION, GASTROENTERITIS Physical Exam Vital Signs: Temp Pulse Resp BP Pulse Ox 97.8 F 58 L 16 109/56 L 95 03/26/17 08:10 03/26/17 08:10 03/26/17 08:10 03/26/17 08:10 03/26/17 08:10 Intake & Output 03/25/17 03/26/17 03/27/17 06:59 06:59 06:59 Intake Total 3130 3600 Balance 3130 3600 Weight 43.2 kg 45.4 kg General appearance: PRESENT: no acute distress, well-developed, well-nourished Head exam: PRESENT: atraumatic, normocephalic Eye exam: PRESENT: conjunctiva pink, EOMI, PERRLA. ABSENT: scleral icterus Ear exam: PRESENT: normal external ear exam Mouth exam: PRESENT: moist, tongue midline Neck exam: ABSENT: carotid bruit, JVD, lymphadenopathy, thyromegaly Respiratory exam: PRESENT: clear to auscultation regino. ABSENT: rales, rhonchi, wheezes Cardiovascular exam: PRESENT: RRR. ABSENT: diastolic murmur, rubs, systolic murmur Pulses: PRESENT: normal dorsalis pedis pul Vascular exam: PRESENT: normal capillary refill GI/Abdominal exam: PRESENT: normal bowel sounds, soft. ABSENT: distended, guarding, mass, organolmegaly, rebound, tenderness Rectal exam: PRESENT: deferred Extremities exam: PRESENT: full ROM. ABSENT: calf tenderness, clubbing, pedal edema Neurological exam: PRESENT: alert, awake, oriented to person, oriented to place , oriented to time, oriented to situation, CN II-XII grossly intact. ABSENT: motor sensory deficit Psychiatric exam: PRESENT: appropriate affect, normal mood. ABSENT: homicidal ideation, suicidal ideation Skin exam: PRESENT: dry, intact, warm. ABSENT: cyanosis, rash Results Laboratory Results: 03/25/17 06:20 03/25/17 06:20 03/23/17 11:20 Total Protein 5.3 L Albumin 2.9 03/23/17 03:50 Sputum Gram Stain - Final 03/23/17 03:50 Sputum Sputum Culture - Final NORMAL STUART Impressions: Chest X-Ray 03/22/17 00:00 IMPRESSION: No acute findings. Assessment & Plan - Diagnosis (1) Pancytopenia due to antineoplastic chemotherapy Is this a current diagnosis for this admission?: Yes Plan: Improved, Revlimid on hold now, discontinue Neupogen, will follow up as outpatient (2) Pneumonia Qualifiers: Pneumonia type: due to unspecified organism Is this a current diagnosis for this admission?: Yes Plan: Improved, patient will go home with a course of Levaquin (3) Multiple myeloma Qualifiers: Multiple myeloma remission status: in remission Qualified Code(s): C90.01 - Multiple myeloma in remission Is this a current diagnosis for this admission?: Yes Plan: Plan for follow-up on this, labs are not yet back but we will review them as an outpatient (4) Hypogammaglobulinemia, acquired Plan: We will decide on further need for IVIG as an outpatient (5) Hypogammaglobulinaemia, unspecified Is this a current diagnosis for this admission?: Yes - Time Time Spent with patient: 15-24 minutes Anticipated discharge: Home
--- NOTE | 2017-03-27 11:21 | PDOC PROGRESS REPORT ---
Subjective Progress Note for:: 03/25/17 Subjective:: This is a patient of Dr. Pinedo admitted for pneumonia dehydration and gastroenteritis. Patient is currently feeling better however is requesting to go home today. Per Dr. Olvera it would be best monitor patient overnight. This was explained to the patient. Patient is agreeable to staying overnight. Reason For Visit: PNEUMONIA, DEHYDRATION, GASTROENTERITIS Physical Exam Vital Signs: Temp Pulse Resp BP Pulse Ox 98.1 F 72 17 126/66 H 98 03/25/17 20:05 03/25/17 20:05 03/25/17 20:05 03/25/17 20:05 03/25/17 20:05 Intake & Output 03/24/17 03/25/17 03/26/17 06:59 06:59 06:59 Intake Total 3902 3130 2130 Balance 3902 3130 2130 Weight 43.2 kg 43.2 kg General appearance: PRESENT: no acute distress, thin Head exam: PRESENT: normocephalic Eye exam: PRESENT: EOMI. ABSENT: scleral icterus Mouth exam: PRESENT: moist Neck exam: ABSENT: carotid bruit, JVD, lymphadenopathy, thyromegaly Respiratory exam: PRESENT: clear to auscultation regino. ABSENT: rales, rhonchi, wheezes Cardiovascular exam: PRESENT: RRR. ABSENT: diastolic murmur, rubs, systolic murmur Pulses: PRESENT: normal dorsalis pedis pul Vascular exam: PRESENT: normal capillary refill GI/Abdominal exam: PRESENT: normal bowel sounds, soft. ABSENT: distended, guarding, mass, organolmegaly, rebound, tenderness Rectal exam: PRESENT: deferred Extremities exam: PRESENT: full ROM. ABSENT: calf tenderness, clubbing, pedal edema Neurological exam: PRESENT: alert, awake, oriented to person, oriented to place , oriented to time, oriented to situation, CN II-XII grossly intact. ABSENT: motor sensory deficit Psychiatric exam: PRESENT: appropriate affect, normal mood. ABSENT: homicidal ideation, suicidal ideation Skin exam: PRESENT: dry, intact, warm. ABSENT: cyanosis, rash Results Laboratory Results: 03/25/17 06:20 03/25/17 06:20 03/23/17 03/25/17 03/25/17 11:20 06:20 06:20 WBC 3.4 L RBC 2.47 L Hgb 9.2 L Hct 26.1 L MCV 106 H MCH 37.3 H MCHC 35.3 RDW 15.0 H Plt Count 92 L Seg Neutrophils % 53.1 Lymphocytes % 33.4 Monocytes % 11.3 Eosinophils % 0.8 Basophils % 1.4 Absolute Neutrophils 1.8 Absolute Lymphocytes 1.1 Absolute Monocytes 0.4 Absolute Eosinophils 0.0 Absolute Basophils 0.0 Sodium 141.3 Potassium 3.3 L Chloride 111 H Carbon Dioxide 24 Anion Gap 6 BUN 5 L Creatinine 0.52 Est GFR ( Amer) > 60 Est GFR (Non-Af Amer) > 60 Glucose 84 Calcium 6.9 L* Magnesium 1.7 Total Bilirubin 0.2 AST 21 ALT 29 Alkaline Phosphatase 49 Total Protein 5.3 L 4.6 L Albumin 2.9 2.5 L TSH 03/25/17 06:20 WBC RBC Hgb Hct MCV MCH MCHC RDW Plt Count Seg Neutrophils % Lymphocytes % Monocytes % Eosinophils % Basophils % Absolute Neutrophils Absolute Lymphocytes Absolute Monocytes Absolute Eosinophils Absolute Basophils Sodium Potassium Chloride Carbon Dioxide Anion Gap BUN Creatinine Est GFR ( Amer) Est GFR (Non-Af Amer) Glucose Calcium Magnesium Total Bilirubin AST ALT Alkaline Phosphatase Total Protein Albumin TSH 3.05 03/23/17 03:50 Sputum Gram Stain - Final 03/23/17 03:50 Sputum Sputum Culture - Final NORMAL STUART Impressions: Chest X-Ray 03/22/17 00:00 IMPRESSION: No acute findings. Assessment & Plan - Diagnosis (1) Pneumonia Qualifiers: Pneumonia type: due to unspecified organism Is this a current diagnosis for this admission?: Yes Plan: Patient with cough and other respiratory symptoms concerning for possible pneumonia. There is no finding on chest x-ray however patient is immunocompromised with neutropenia and therefore patient will be treated for 7 days of Levaquin for possible pneumonia. (2) Dehydration Is this a current diagnosis for this admission?: Yes Plan: Patient received gentle IV hydration. (3) Gastroenteritis Is this a current diagnosis for this admission?: Yes Plan: Still having diarrhea however this may be related to her medications. Patient states that this is improving. (4) Hypokalemia Is this a current diagnosis for this admission?: Yes Plan: Will mild hypokalemia of 3.3. Will replace. (5) Multiple myeloma Qualifiers: Multiple myeloma remission status: in remission Qualified Code(s): C90.01 - Multiple myeloma in remission Is this a current diagnosis for this admission?: Yes Plan: Patient being followed by Dr. Olvera. Patient was on Revlimid however this is being discontinued due to neutropenia. (6) Pancytopenia due to antineoplastic chemotherapy Is this a current diagnosis for this admission?: Yes Plan: Patient was given Neupogen for her neutropenia. Patient absolutely should pill count is now 1.8. He was recommended to her Revlimid be discontinued also that her acyclovir be decreased to 500 mg daily as this could also suppress her counts. (7) DVT (deep venous thrombosis) Is this a current diagnosis for this admission?: Yes Plan: Continue Xarelto. - Time Time Spent with patient: 15-24 minutes Anticipated discharge: Home Within: within 24 hours - Inpatient Certification Medical Necessity: Need For IV Fluids
--- NOTE | 2017-03-27 11:27 | PDOC DISCHARGE SUMMARY ---
General - Admit/Disc Date/PCP Admission Date/Primary Care Provider: 03/22/17 15:23 BECK PEREZ, Discharge Date: 03/26/17 - Discharge Diagnosis (1) Pneumonia Is this a current diagnosis for this admission?: Yes (2) Dehydration Is this a current diagnosis for this admission?: Yes (3) Gastroenteritis Is this a current diagnosis for this admission?: Yes (4) Hypokalemia Is this a current diagnosis for this admission?: Yes (5) Multiple myeloma Is this a current diagnosis for this admission?: Yes (6) Pancytopenia due to antineoplastic chemotherapy Is this a current diagnosis for this admission?: Yes (7) DVT (deep venous thrombosis) Is this a current diagnosis for this admission?: Yes - Additional Information Resuscitation Status: Do Not Resuscitate Prescriptions: Levofloxacin [Levaquin 500 mg Tablet] 500 mg PO DAILY #5 tablet Home Medications: Calcium Carbonate/Vitamin D3 [Calcium 500-Vit D3 400 Tablet] 1 each PO DAILY Citalopram Hydrobromide [Celexa 20 mg Tablet] 20 mg PO DAILY 03/22/17 Cyanocobalamin (Vitamin B-12) [Vitamin B-12 1000 mcg Tablet] 1,000 mcg PO DAILY 03/22/17 Oxycodone HCl [Oxycontin Sr 10 mg Tablet] 10 mg PO Q12HP PRN 03/22/17 Oxycodone HCl/Acetaminophen [Percocet 5-325 mg Tablet] 1 tab PO Q4HP PRN Prednisolone Acetate [Pred Forte] 1 drop OS DAILY 03/22/17 Rivaroxaban [Xarelto] 20 mg PO DAILY 03/22/17 Citalopram Hydrobromide [Celexa 20 mg Tablet] 20 mg PO DAILY tablet 03/26/17 Cyanocobalamin (Vitamin B-12) [Vitamin B-12 1000 mcg Tablet] 1,000 mcg PO DAILY tablet 03/26/17 Levofloxacin [Levaquin 500 mg Tablet] 500 mg PO DAILY #5 tablet 03/26/17 Oxycodone HCl/Acetaminophen [Percocet 5-325 mg Tablet] 1 tab PO Q4HP PRN tablet 03/26/17 Rivaroxaban [Xarelto 10 mg Tablet] 20 mg PO WSUPPER tablet 03/26/17 Valacyclovir HCl [Valtrex 500 mg Tablet] 500 mg PO DAILY tablet 03/26/17 Valacyclovir HCl [Valtrex 500 mg Tablet] 500 mg PO DAILY #30 03/26/17 History of Present Illness History of Present Illness: MARIELA SINHA is a 76 year old female with a history of multiple myeloma on Revlimid in remission. Patient presents with complaint of cough, diarrhea, and low blood pressure. Please refer to H&P dictated by Dr. Perez for complete details. Hospital Course Hospital Course: This is a patient of Dr. Perez who was admitted on 03/22/2017 with complaints of URI symptoms and diarrhea. Patient does have a history of multiple myeloma now in remission patient was continued on Revlimid. Patient developed pancytopenia and is thought to be secondary to the Revlimid along with acyclovir. Per hematology oncology recommendations Revlimid was discontinued and her acyclovir was decreased to 500 mg p.o. daily. Patient counts are recovering. There is some concern that patient may have a pneumonia despite having a clear chest x-ray. However because patient is immunocompromise blood cultures sputum cultures were ordered. There was no growth on either. Patient was continued on Levaquin. Patient is to complete 7 days of treatment. Patient also has some dehydration for which she received IV fluids. Patient was having diarrhea however this did improve. Patient did have some mild hypokalemia advised patient to get some [id number] potassium intake for the next couple of days. She has a history of DVT for which she is treated with Xarelto. Patient is to follow with Dr. Olvera in the next 2 weeks or so. Patient is feeling well and is looking forward to being discharged home. Physical Exam Vital Signs: Temp Pulse Resp BP Pulse Ox 97.8 F 58 L 16 109/56 L 95 03/26/17 08:10 03/26/17 08:10 03/26/17 08:10 03/26/17 08:10 03/26/17 08:10 Intake & Output 03/26/17 03/27/17 03/28/17 06:59 06:59 06:59 Intake Total 3600 Balance 3600 Weight 45.4 kg General appearance: PRESENT: no acute distress, thin Head exam: PRESENT: normocephalic Eye exam: PRESENT: EOMI. ABSENT: scleral icterus Mouth exam: PRESENT: moist Neck exam: ABSENT: carotid bruit, JVD, lymphadenopathy, thyromegaly Respiratory exam: PRESENT: clear to auscultation regino. ABSENT: rales, rhonchi, wheezes Cardiovascular exam: PRESENT: RRR. ABSENT: diastolic murmur, rubs, systolic murmur Pulses: PRESENT: normal dorsalis pedis pul Vascular exam: PRESENT: normal capillary refill GI/Abdominal exam: PRESENT: normal bowel sounds, soft. ABSENT: distended, guarding, mass, organolmegaly, rebound, tenderness Rectal exam: PRESENT: deferred Extremities exam: PRESENT: full ROM. ABSENT: calf tenderness, clubbing, pedal edema Neurological exam: PRESENT: alert, awake, oriented to person, oriented to place , oriented to time, oriented to situation, CN II-XII grossly intact. ABSENT: motor sensory deficit Psychiatric exam: PRESENT: appropriate affect, normal mood. ABSENT: homicidal ideation, suicidal ideation Skin exam: PRESENT: dry, intact, warm. ABSENT: cyanosis, rash Results Laboratory Results: 03/25/17 06:20 03/25/17 06:20 Impressions: Chest X-Ray 03/22/17 00:00 IMPRESSION: No acute findings. Plan Time Spent: Greater than 30 Minutes
== END 2017-03-26 11:30 | disposition home or self-care (01) | DRG 193 ==
LOC: 5 15:23 → UNDOADMIN 15:23 → 5 16:12
PROVIDERS: ADMIT Internal Medicine; ATTEND Internal Medicine
DX: J18.9 Pneumonia, unspecified organism (principal); D61.810 Antineoplastic chemotherapy induced pancytopenia; C90.01 Multiple myeloma in remission; D80.1 Nonfamilial hypogammaglobulinemia; E87.6 Hypokalemia; E86.0 Dehydration; K52.9 Noninfective gastroenteritis and colitis, unspecified; Z86.718 Personal history of other venous thrombosis and embolism; Z79.02 Long term (current) use of antithrombotics/antiplatelets; T45.1X5A Adverse effect of antineoplastic and immunosuppressive drugs, initial encounter; F32.9 Major depressive disorder, single episode, unspecified; F41.1 Generalized anxiety disorder; Z66 Do not resuscitate; Z79.899 Other long term (current) drug therapy; Z88.0 Allergy status to penicillin; Z88.2 Allergy status to sulfonamides
CPT/HCPCS: 36415; 71020; 80048; 80053; 82784; 83735; 83883; 84443; 85025; 86320; 87040; 87070; 87205; 93005; 93010; 94640; J1442; J1580; J1956; J3490; J7030; S0028

== ENCOUNTER 2018-06-02 08:22 | Outpatient (CLI) | payer MEDICARE, OTHER ==
[~2018-06-02 08:22] MED LIST: ACETAMINOPHEN 325 MG TABLET PO PRN; DEXTROSE 5%-WATER 250 ML IV PRN; DIPHENHYDRAMINE HCL 50 MG in NORMAL SALINE 50 ML IV PRN; IMMUNE GLOB,GAM CAPRYLATE(IGG) 20 GM in CONTAINER,EMPTY 1 EACH IV PRN
[2018-06-02 09:09] VITALS: BP 132/58
== END 2018-06-02 12:07 | disposition home or self-care (01) ==
LOC: II 08:22 → 5TH 09:24 → II 12:07
PROVIDERS: ATTEND Internal Medicine
PROC: 30233S1 Transfusion of Nonautologous Globulin into Peripheral Vein, Percutaneous Approach (ICD-10-PCS; principal; 2018-06-02)
PROC: 3E033GC Introduction of Other Therapeutic Substance into Peripheral Vein, Percutaneous Approach (ICD-10-PCS; 2018-06-02)
DX: D80.1 Nonfamilial hypogammaglobulinemia (principal)
CPT/HCPCS: 96365; 96366; 96375; J1561; A9270 ×2; J1200; J3490

== ENCOUNTER → 2019-01-05 | Outpatient (CLI) | payer MEDICARE, OTHER ==
--- NOTE | 2019-01-05 10:17 | WOMENS IMAGING REPORT ---
EXAM DESCRIPTION: BONE DENSITY HIP/SPINE COMPLETED DATE/TIME: 01/05/2019 9:43 am REASON FOR STUDY: M81.0 AGE-RELATED OSTEOPOROSIS WITHOUT CURRENT PATHOLOGICAL FRACTURE M81.0 AGE-RE LATED OSTEOPOROSIS W/O CURRENT PATHOLOGICAL FRAC COMPARISON: None. TECHNIQUE: Dual-Energy X-ray Absorptiometry (DEXA) of the AP Spine, Hip, and Forearm. LIMITATIONS: None. FINDINGS: HIP: The bone mineral density (BMD) measured in the left hip correlates with a T-score of -1.5, which is o steopenia as defined by the World Health Organization. BMD Change vs Baseline: -0.6% FOREARM: The bone mineral density (BMD) measured in the left forearm correlates with a T-score of -2.5 which i s osteoporosis as defined by the World Health Organization. BMD Change vs Baseline: N/A 10 year Fracture Risk Assessment: Major Osteoporotic Fracture: Not available. Hip Fracture: Not available. IMPRESSION: 1. HIP WHO CLASSIFICATION: OSTEOPENIA. 2. FOREARM WHO CLASSIFICATION: OSTEOPOROSIS. OVERALL ASSESSMENT: WHO CLASSIFICATION: OSTEOPOROSIS. COMMENT: The World Health Organization defines low BMD as follows: T-score: Normal: Greater than -1.0 Osteopenia: Between -1.0 and -2.5 Osteoporosis: Less than -2.5 without fractures Established osteoporosis: Less than -2.5 with fractures In general, you may wish to consider: Diagnosis Treatment Follow-up DEXA Normal BMD Prevention 2-3 years Osteopenia Prevention/Therapy 1-2 years Osteoporosis Therapy Yearly TECHNICAL DOCUMENTATION: JOB ID: [id number] [employer]- All Rights Reserved Reading location - IP/workstation name: [email or web address]
== END ==
LOC: WI 08:58
PROVIDERS: ATTEND Internal Medicine
DX: M81.0 Age-related osteoporosis without current pathological fracture (principal)
CPT/HCPCS: 77080

== ENCOUNTER → 2019-04-09 | Outpatient (CLI) | payer MEDICARE, OTHER ==
[2019-04-09 12:36] LABS: BLOOD UREA NITROGEN 17 mg/dL (7-20)
== END ==
LOC: OD 11:17
PROVIDERS: ATTEND Physician Assistant
DX: M54.5 Low back pain (principal)
CPT/HCPCS: 36415; 82565; 84520